=== PATIENT | female | born 1965 | race Caucasian/White ===

== ENCOUNTER 2022-09-15 19:45 | Emergency (ER) | payer BC ==
[~2022-09-15] VITALS: Ht 160 cm; Wt 46.3 kg
--- NOTE | 2022-09-15 20:24 | NUR ---
Patient ambulated to room #2-B with family member, informed of plan of care, awaiting MD exam. No s/s of any distress noted. Right arm marlys wrap intact from home. Patient is alert and oriented x 4, respirations are even and unlabored, abd is soft non tender to palpation, will continue to monitor.
--- NOTE | 2022-09-15 20:28 | NUR ---
at bedside for exam.
--- NOTE | 2022-09-15 20:54 | NUR ---
Xray at bedside.
[2022-09-15] MEDS ORDERED: TRAM50TA2 PO (21:54)
[2022-09-15 22:00] VITALS: BP 112/73
--- NOTE | 2022-09-15 22:00 | NUR ---
Splint and sling applied as per order. ACI given, remains stable for discharge home with family.
== END 2022-09-15 22:01 | disposition home or self-care (01) ==
LOC: ER 19:45
DX: S52.511A Displaced fracture of right radial styloid process, initial encounter for closed fracture (principal); W01.0XXA Fall on same level from slipping, tripping and stumbling without subsequent striking against object, initial encounter; Y92.89 Other specified places as the place of occurrence of the external cause; L40.50 Arthropathic psoriasis, unspecified
CPT/HCPCS: 73110; A4663